=== PATIENT | female | born 1995 | race Caucasian/White ===

== ENCOUNTER 2017-12-01 13:16 | Emergency (ER) | payer OTHER ==
--- NOTE | 2017-12-01 14:50 | PD ---
HPI Chief Complaint cramping pain and decreased movement Date Seen: Dec 01, 2017 Time Seen: 14:30 Travel History International Travel<30 Days: No Contact w/Intl Traveler<30Days: No Known Affected Area: No History of Present Illness HPI Ms Kuo is a 22YO at 29/0 weeks seen at [facility] with PMHx PCOS who p/w decreased movement and cramping pain since last night. Pt also reports some mucousy vaginal discharge over the last 24 hours. Cramping is below umbilicus and pt indicates pain sometimes radiates around to her back bilaterally. States she felt no movement from 10PM last night until early this afternoon. After eating today around 1PM has felt the fetus moving although not back at baseline yet. Pt also endorses intractable heartburn each time she eats which is worse than other pregnancies. Reports occasional HAs and lightheadedness when standing too quickly; however, denies N/V/D, constipation. Pt had induced vaginal delivery in first , C/S in second for macrosomia , and spontaneous miscarriage in third . Pt denies PIH or GDM in this or other pregnancies, but states someone had told her possibly she had high blood glucose with her last . Pt has gotten her labs but is not sure of the results. Weeks Gestation: 29 Para: 2 : 4 Miscarriage: 1 : 0 History Past Medical History Narrative Medical PCOS x7-8 years Obstetric History Obstetric History 1x induced vaginal delivery at 39 weeks 1x C/S at 37 weeks 1x spontaneous miscarriage at 6-7 weeks Past Surgical History Narrative Surgical C/S Family History Narrative Family History Mother - cholecystectomy Social History Alcohol Use: No Tobacco Use: No (former smoker; quit in 2014 after 5 years of smoking 1ppd) Substance Abuse: No Allergies-Medications (Allergen,Severity, Reaction): Coded Allergies: No Known Allergies (Unverified , 09/16/17) Home Meds Active Scripts Vit W/ Fe Polysacch C (Vitafol Ultra 29-0.6-0.4-200 mg) 29 Mg Iron-1 Mg -200 Mg Cap Prov:Sharif Felipe MD 09/16/17 Review of Systems General / Constitutional: No: Fever, Chills Eyes: No: Visual changes HENT: Headaches (occasional), Lightheadedness Cardiovascular: No: Chest Pain or Discomfort, Palpitations Respiratory: Short of Breath (occasionally with exertion), No: Cough Gastrointestinal: Nausea, Diarrhea (occasional), Abdominal Pain, Indigestion, No: Vomiting, Constipation Genitourinary: Pelvic Pain (lower pelvic pain), Discharge (mucousy over last 24 hours), No: Dysuria, Vaginal Bleeding Musculoskeletal: Cramping Skin: No Rash Neurologic: No: Weakness, Dizziness Physical Exam T - 98.3 / HR 82 / BP 111/62 / RR16 Narrative GENERAL: Well-nourished, well-developed patient lying in bed in NAD. SKIN: Warm and dry. HEAD: Normocephalic and atraumatic. EYES: No scleral icterus. No injection or drainage. EOMI. ENT: No nasal drainage noted. Mucous membranes pink. Airway patent. NECK: Supple, trachea midline. No JVD. CARDIOVASCULAR: Regular rate and rhythm without murmurs, gallops, or rubs. RESPIRATORY: Breath sounds equal bilaterally. No accessory muscle use. ABDOMEN/GI: Abdomen soft, non-tender, bowel sounds present, no rebound, no guarding Gravid to 29 weeks size GENITOURINARY: External Genitalia: intact and normal in appearance Cervix: closed Dilatation: 0 Effacement: 0 Station: - Presentation: - Membranes: intact Uterine Contractions: absent FHT's: Category: 1 Baseline: 130 Reactive: y Variability: moderate Decels: absent EXTREMITIES: No cyanosis or edema. BACK: Nontender without obvious deformity. No CVA tenderness. NEUROLOGICAL: Awake and alert. Motor and sensory grossly within normal limits. Five out of 5 muscle strength in all muscle groups. Normal speech. Data Data Vital Signs Reviewed: Yes Orders Orders Urinalysis - C+S If Indicated (12/01/17 14:46) MDM Medical Record Reviewed: Yes Narrative Course / MDM 22YO at 29/0 weeks followed by [facility] p/w decreased movement of about 12 hours and lower abdominal cramping pain. Cervix is closed, thick and long. FHT are reassuring with BL 130, reactive, moderate and absent decels 1. IUP -Monitor and toco 2. Decreased movement -Reassuring FHTs on monitor with BL 130, reactive, moderate, no decels -Pt notes good movement since eating at 1PM 3. UTI -UA positive leuko esterase -Macrobid 100mg PO BID x5 days; script transmitted to pt preferred pharmacy -F/u with OB doctor in 1 week 4. Abdominal pain -Pt encouraged to hydrate copiously -Pt advised to take Tylenol PRN for round ligament pain -Pt educated on three top causes of abdominal pain in 3rd trimester -Pt discharged home Pt seen and dw Chana Daugherty and Ernestina Aldana Diagnosis Diagnosis: Primary Impression: Abdominal pain affecting Additional Impressions: Decreased movement affecting management of mother, antepartum UTI (urinary tract infection) during Disposition: 01 DISCHARGE HOME Condition: Stable Scripts Nitrofurantoin Monohydrate Macrocrystals (Macrobid) 100 Mg Capsule 100 MG PO BID for Infection for 5 Days, #10 CAP 0 Refills Prov: Octavio Garcia MD R1 12/01/17 Patient Instructions: Abdominal Pain in (ED), General Instructions Octavio Garcia MD R1 Dec 01, 2017 14:50
[2017-12-01 16:03] LABS: AMORPHOUS SEDIMENT, URINE RARE; BACTERIA, URINE MOD /hpf; BILIRUBIN, URINE NEG (NEG); BLOOD, URINE NEG (NEG); GLUCOSE,URINE NEG (NEG); KETONE, URINE NEG (NEG); MUCUS URINE FEW /lpf (OCC); NITRITE,URINE NEG (NEG); PH, URINE 6.5 (5.0-8.5); SQUAMOUS EPITHELIAL CELL URINE 5 /hpf (0-5); URINE COLOR YELLOW (YELLW/STRAW); URINE LEUKOCYTE ESTERASE LARGE (NEG)
[2017-12-01] MEDS ORDERED: MACR100C2 PO (16:14)
== END 2017-12-01 15:51 | disposition home or self-care (01) ==
LOC: HOBED 13:16
DX: O23.43 Unspecified infection of urinary tract in pregnancy, third trimester (principal); O36.8130 Decreased fetal movements, third trimester, not applicable or unspecified; Z3A.29 29 weeks gestation of pregnancy
CPT/HCPCS: 81001; 87086; 99283

== ENCOUNTER 2018-01-27 02:33 | Emergency (ER) | payer OTHER ==
[~2018-01-27 02:33] MED LIST: MACR100C2 PO
[2018-01-27 02:38] VITALS: BP 114/63; PULSE 85; RESP 18; TEMP 97.8; O2SAT 99
[2018-01-27 06:20] LABS: BACTERIA, URINE MANY /hpf; BILIRUBIN, URINE NEG (NEG); BLOOD, URINE NEG (NEG); GLUCOSE,URINE NEG (NEG); KETONE, URINE TRACE mg/dL (NEG); MUCUS URINE MANY /lpf (OCC); NITRITE,URINE NEG (NEG); PH, URINE 6.5 (5.0-8.5); RENAL EPITHELIAL CELLS 3 /hpf; SQUAMOUS EPITHELIAL CELL URINE 8 /hpf (0-5); URINE COLOR YELLOW (YELLW/STRAW); URINE LEUKOCYTE ESTERASE LARGE (NEG)
--- NOTE | 2018-01-27 06:27 | PD ---
HPI Chief Complaint: Skin Problem Time Seen by Provider: 04:07 Travel History International Travel<30 days: No Contact w/Intl Traveler<30days: No Traveled to known affect area: No History of Present Illness HPI The patient is a 22 year old female who presents to the [facility] emergency department with a history of anemia, recently placed on iron supplementation by chart picker, Dr. Navarro 3 weeks ago. She reports that over the last week she has had a recurrence of hemorrhoids. She reports that she started taking stool softeners and using preparation H, however over the last 3 days his symptoms have worsened. She reports having pain with sitting. She reports that she is 37 weeks . Her last menstrual cycle was May 09, 2017. Her due date is February 16. She reports that she has been feeling the baby move well. She denies having any abdominal pain or cramping. She denies having any nausea, vomiting, or diarrhea. The patient denies having any blood in her stool or black or tarry stools. She reports that she has been taking Tylenol for the pain. She reports that she has noticed that her urine has been darker than usual in spite of drinking at least 12 glasses of water daily. She denies having any dysuria, urinary frequency, or urinary urgency. She denies having any vaginal discharge or vaginal bleeding. On review of systems otherwise, she denies having any known recent fevers, cough, congestion , neck pain, chest pain, shortness of breath, or neurologic symptoms. [facility] Past Medical History Narrative Medical The patient's past medical history is significant for hemorrhoids. The patient' s OB history is significant for being a with 1 miscarriage previously. She reports that she has had one vaginal delivery and 1 . Medical History: Denies Significant Hx ?: LMP: 05/09/17 : 4 Para: 2 Miscarriage: 1 Past Surgical History Narrative Surgical The patient's past surgical history is significant for a . Section: Yes Social History Alcohol Use: No Tobacco Use: No (former smoker; quit in 2014 after 5 years of smoking 1ppd) Substance Use: No Allergies-Medications (Allergen,Severity, Reaction): Coded Allergies: No Known Allergies (Unverified , 01/27/18) Reported Meds & Prescriptions Reported Meds & Active Scripts Active Macrobid (Nitrofurantoin Monohydrate Macrocrystals) 100 Mg Capsule 100 Mg PO BID 5 Days Vitafol Ultra 29-0.6-0.4-200 mg ( Vit W/ Fe Polysacch C) 29 Mg Iron-1 Mg -200 Mg Cap Review of Systems Except as stated in HPI: all other systems reviewed are Neg General / Constitutional: No: Fever Eyes: No: Visual changes HENT: No: Headaches Cardiovascular: No: Chest Pain or Discomfort Respiratory: No: Shortness of Breath Gastrointestinal: No: Abdominal Pain Genitourinary: Positive: Other (The patient reports having rectal pain.), No: Urgency, Frequency, Dysuria Musculoskeletal: No: Pain Skin: No Rash Neurologic: No: Weakness Psychiatric: No: Depression Endocrine: No: Polydipsia Hematologic/Lymphatic: No: Easy Bruising Physical Exam Narrative General: The patient is a well-developed well-nourished female in no acute distress. Head and Neck exam: Head is normocephalic atraumatic. Eyes: EOMI, pupils are equal round and reactive to light. Nose: Midline septum with pink mucous membranes Mouth: Dentition unremarkable. Moist mucus membranes. Posterior oropharynx is not erythematous. No tonsillar hypertrophy. Uvula midline. Airway patent. Neck: No palpable lymphadenopathy. No nuchal rigidity. No thyromegaly. Cardiovascular: Regular rate and rhythm without murmurs, gallops, or rubs. No pulse deficit to the extremities on simultaneous auscultation and palpation of her radial artery. Lungs: Clear to auscultation bilaterally. No wheezes, rhonchi, or rales. Abdomen: Soft, distended related to , fundus well above the umbilicus, no palpable contractions, no tenderness on palpation of all quadrants of the abdomen, head is down into the pelvis on palpation.. No guarding, rebound , or rigidity. Normal bowel sounds are audible. Extremities: No clubbing, cyanosis, or edema. 2+ pulses in all 4 extremities. No calf tenderness on palpation. Back: No costovertebral angle tenderness to palpation. Neurologic Exam: Grossly nonfocal. Skin Exam: No rash noted. Intact skin that is warm and dry. RECTAL EXAM: The patient on examination is noted to have 4 inflamed hemorrhoids that are tender to palpation. No abscess formation. No surrounding erythema or perineal tenderness. Data Data Last Documented VS Vital Signs Date Time Temp Pulse Resp B/P (MAP) Pulse Ox O2 Delivery O2 Flow Rate FiO2 01/27/18 02:38 97.8 85 18 114/63 (80) 99 Orders Orders Urinalysis - C+S If Indicated (01/27/18 05:28) Oral Rehydration (01/27/18 05:53) Urine Culture (01/27/18 05:55) Labs Laboratory Tests Test 01/27/18 05:55 Urine Color YELLOW Urine Turbidity HAZY Urine pH 6.5 Urine Specific [place] 1.041 Urine Protein 30 mg/dL Urine Glucose (UA) NEG mg/dL Urine Ketones TRACE mg/dL Urine Occult Blood NEG Urine Nitrite NEG Urine Bilirubin NEG Urine Urobilinogen 2.0 MG/DL Urine Leukocyte Esterase LARGE Urine RBC 7 /hpf Urine WBC 11 /hpf Urine Squamous Epithelial Cells 8 /hpf Urine Renal Epithelial Cells 3 /hpf Urine Bacteria MANY /hpf Urine Mucus MANY /lpf Microscopic Urinalysis Comment CULTURE INDICATED MDM Medical Decision Making Medical Screen Exam Complete: Yes Emergency Medical Condition: Yes Medical Record Reviewed: Yes Differential Diagnosis Hemorrhoid, versus perianal abscess, versus fistula Narrative Course During the course of the patient's emergency department visit, the patient's history, examination, and differential diagnosis were reviewed with the patient. The patient had a urine sent for analysis. The patient on examination is noted to have thrombosed hemorrhoids that are tender to palpation. No signs of infection. The patient's laboratory studies were reviewed and remarkable for a urinalysis that shows concentrated urine 30 protein trace ketones large leukocyte esterase , 7 RBCs, 11 WBCs, many bacteria, culture indicated. The patient will be discharged home to continue on stool softeners. The patient was given a prescription for Anusol HC. The patient was given a prescription for Macrobid for urinary tract infection. She was encouraged to follow-up with her chart picker as previously scheduled on for reexamination. The patient is resting comfortably and feels better, is alert and in no distress. The patient's results and examination findings were discussed with the patient. The repeat examination is unremarkable and benign. The history, exam, diagnostic testing, and current condition do not suggest any significant pathology to warrant further testing, continued ED treatment, admission, or surgical evaluation at this point. The vital signs have been stable. The patient does not have uncontrollable pain, intractable vomiting, or other significant symptoms. The patient's condition is stable and appropriate for discharge. The patient will pursue further outpatient evaluation with a primary care physician or other designated or consulting physician as indicated in the discharge instructions. The patient is instructed to report back to the emergency department immediately for reexamination in the mean time if she develops any new or worsening signs or symptoms. The patient expressed understanding and was agreeable with this plan. Diagnosis Primary Impression: UTI (urinary tract infection) during Qualified Codes: O23.43 - Unspecified infection of urinary tract in , third trimester Additional Impressions: Hemorrhoids Qualified Codes: K64.9 - Unspecified hemorrhoids Abdominal pain affecting Referrals: [facility] 2 days Patient Instructions: General Instructions, Hemorrhoids (ED), Urinary Tract Infection in (ED) Med/Other Pt SpecificInfo: Prescription(s) given Scripts Hydrocortisone Rectal (Anusol-Hc Rectal) 2.5% Cream 1 APPLIC RECTAL QID for Hemorrhoids, #30 GM 0 Refills Prov: Estephania Tilley MD 01/27/18 Nitrofurantoin Monohydrate Macrocrystals (Macrobid) 100 Mg Cap 100 MG PO BID for Infection, #19 CAP 0 Refills Prov: Estephania Tilley MD 01/27/18 Disposition: 01 DISCHARGE HOME Condition: Stable Estephania Tilley MD Jan 27, 2018 06:27
[2018-01-27] MEDS ORDERED: HYDR2.5%T RECTAL (06:36)
[2018-01-27] MEDS ORDERED: MACR100C2 PO (06:36)
[2018-01-27] MEDS ORDERED: NITROFURANTOIN MONOHYD MACROCR 100 MG CAP PO ONE (06:45)
== END 2018-01-27 06:42 | disposition home or self-care (01) ==
LOC: NEPC 02:33
DX: O23.43 Unspecified infection of urinary tract in pregnancy, third trimester (principal); O99.013 Anemia complicating pregnancy, third trimester; O22.43 Hemorrhoids in pregnancy, third trimester; Z87.891 Personal history of nicotine dependence; Z3A.37 37 weeks gestation of pregnancy
CPT/HCPCS: 81001; 87086; 99283

== ENCOUNTER 2018-02-10 19:50 | Inpatient (IN) | payer OTHER ==
[~2018-02-10] VITALS: Ht 170.2 cm; Wt 94.3 kg
[~2018-02-10 19:50] MED LIST changes: +HYDR2.5%T RECTAL
[2018-02-10] MEDS ORDERED: LACTATED RINGER'S 1000 ML INJ 1,000 ML IV ONE (20:35)
--- NOTE | 2018-02-10 20:35 | HHI.HP ---
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) Patient Name: Sanaz Kuo Unit Number: [id number] Date of : 1995 Patient Status: Registered Clinic Attending Doctor: HPI HPI Chief Complaint Delivery consult Travel History International Travel<30 Days: No Contact w/Intl Traveler<30Days: No Known Affected Area: No History of Present Illness HPI 22-year-old , IUP at 39 wk c/o CTXs q 3-4 min painful , also LOF but Amnisure is neg Patient's care has been complicated by history of a previous delivery, anxiety, anemia, history of LGA , desire for permanent surgical sterilization, recent diagnosis of urinary tract infection She had a vaginal delivery of a 6 lbs. 11 oz. followed by delivery for a 10 lbs. 3 oz. . She has an ultrasound scheduled for tomorrow and would like a trial of labor unless this appears to be large as well. Patient reports good movement. She denies any leaking of fluid or vaginal bleeding. She denies any painful contractions at this time. Weeks Gestation: 3 9 Para: 1 : 2 History (Limited) History Past Medical History Narrative Medical Anxiety, anemia Obstetric History Obstetric History 002 1 delivery 1 Menarche at age 13 with menses occurring every month and lasting approximately 10 days. She denies any history of abnormal Pap smears or STDs. Past Surgical History Narrative Surgical delivery 1 Family History Family History: Negative Social History Alcohol Use: No Tobacco Use: No Substance Abuse: No Allergies-Medications Allergies-Medications (Allergen,Severity, Reaction): Coded Allergies: No Known Allergies (Unverified , 01/27/18) Home Meds Active Scripts Hydrocortisone Rectal (Anusol-Hc Rectal) 2.5% Cream, 1 APPLIC RECTAL QID for Hemorrhoids, #30 GM 0 Refills Prov:Estephania Tilley MD 01/27/18 Nitrofurantoin Monohydrate Macrocrystals (Macrobid) 100 Mg Cap, 100 MG PO BID for Infection, #19 CAP 0 Refills Prov:Estephania Tilley MD 01/27/18 Vit W/ Fe Polysacch C (Vitafol Ultra 29-0.6-0.4-200 mg) 29 Mg Iron-1 Mg -200 Mg Cap Prov:Sharif Felipe MD 09/16/17 Discontinued Scripts Nitrofurantoin Monohydrate Macrocrystals (Macrobid) 100 Mg Capsule, 100 MG PO BID for Infection for 5 Days, #10 CAP 0 Refills Prov:Octavio Garcia MD R1 12/01/17 ROS Review of Systems Except as stated in HPI: all other systems reviewed are Neg Physical Exam Physical Exam Narrative GENERAL: Well-nourished, well-developed patient. SKIN: Warm and dry. HEAD: Normocephalic and atraumatic. EYES: No scleral icterus. No injection or drainage. ENT: No nasal drainage noted. Mucous membranes pink. Airway patent. NECK: Supple, trachea midline. No JVD. CARDIOVASCULAR: Regular rate and rhythm without murmurs, gallops, or rubs. RESPIRATORY: Breath sounds equal bilaterally. No accessory muscle use. BREASTS: Deferred ABDOMEN/GI: Abdomen soft, non-tender, bowel sounds present, no rebound, no guarding Gravid GENITOURINARY: Deferred FHT's: Deferred EXTREMITIES: No cyanosis or edema. BACK: Nontender without obvious deformity. NEUROLOGICAL: Psychiatric: Awake and alert. Motor and sensory grossly within normal limits. Grossly normal muscle strength in all muscle groups. Normal speech. Grossly normal memory and affect. Grossly normal range of motion and gait. Data Data [facility] Plan Assessment/plan: 1. IUP at 39 wksPCS in early labor scheduled for RCS BTL in 2 d , will proceed with this procedure because she has gone into labor 2. History of previous delivery following : We discussed at length the risks, benefits, and alternatives to a trial of labor after including but not limited to, the risk of uterine rupture approximately 1-2%. We discussed that uterine rupture could carry with it catastrophic effects including brain damage or to her and or the . We discussed the indications of delivery during a including nonreassuring heart tracing. We discussed other risks of including but not limited to pain, need for delivery, need for hysterectomy, need for blood transfusion, and other risks. We discussed the risks associated with delivery including but not limited to pain, infection, bleeding, injury to other organs like the bladder/bowel/nerves/vessels, injury to the baby, need for repeat operation, need for hysterectomy, need for blood transfusion, wound infection and breakdown, and other possible complications. all the patient's questions were answered. The patient's operative report is not included in her chart so this was requested again from labor and delivery. 3. History of anemia: Most recent hemoglobin 8.4 as per patient report, discussed that she has a higher likelihood of requiring a blood transfusion with her anemia. We discussed po iron and IV iron and the risks versus benefits of each and brief. Will discuss further with Dr. Felipe and deferred to his management. 4. Desire for permanent surgical sterilization: The patient reports that she signed her tubal papers on Jan 21 2018. Her papers will not be mature until February 20, 2018. She is aware this is a permanent and irreversible procedure and is content with her family size. She is aware there are alternatives but desires a tubal ligation if she undergoes a delivery. She is aware that should she deliver before this date given by she is likely not going to receive her tubal ligation. She is aware that she may obtain this on an outpatient basis with Dr. Felipe. 5. Anxiety: Patient on Zoloft for history of anxiety. Shay Daugherty II, MD Feb 10, 2018 20:35
[2018-02-10] MEDS ORDERED: FERR325T18 PO (20:38)
[2018-02-10] MEDS ORDERED: ZOLO50TA PO (20:38)
[2018-02-10] MEDS ORDERED: AMOX500C PO (20:38)
[2018-02-10] MEDS ORDERED: ACETAMINOPHEN 1000 MG/100 ML 100 ML IV ONE (20:52)
[2018-02-10] MEDS ORDERED: MORPHINE SULFATE PF 5 MG/10 ML VIAL ONE (20:52)
[2018-02-10] MEDS ORDERED: LACTATED RINGER'S 1000 ML INJ 1,000 ML IV SCH (21:05)
[2018-02-10 21:09] LABS: AUTOMATED NEUTROPHIL # 5.1 TH/MM3 (1.8-7.7); BASOPHIL % 0.5 % (0.0-2.0); EOSINOPHIL # 0.1 TH/MM3 (0-0.4); HEMATOCRIT 31.5 % (35.0-46.0); LYMPH % 24.1 % (9.0-44.0); LYMPHOCYTE # 1.8 TH/MM3 (1.0-4.8); MEAN CELL VOLUME 76.3 FL (80.0-100.0); MEAN CORPUSCULAR HEMOGLOBIN 24.3 PG (27.0-34.0); MEAN CORPUSCULAR HGB CONC 31.9 % (32.0-36.0); MEAN PLATELET VOLUME 8.3 FL (7.0-11.0); MONO % 6.5 % (0.0-8.0); MONOCYTE # 0.5 TH/MM3 (0-0.9); NEUT % 67.9 % (16.0-70.0); PLATELET COUNT 176 TH/MM3 (150-450); RED BLOOD COUNT 4.13 MIL/MM3 (4.00-5.30); RED CELL DISTRIBUTION WIDTH 21.7 % (11.6-17.2); WHITE BLOOD COUNT 7.6 TH/MM3 (4.0-11.0)
[2018-02-10 21:18] LABS: BACTERIA, URINE MOD /hpf; BILIRUBIN, URINE NEG (NEG); BLOOD, URINE NEG (NEG); GLUCOSE,URINE NEG (NEG); KETONE, URINE NEG (NEG); MUCUS URINE FEW /lpf (OCC); NITRITE,URINE NEG (NEG); SQUAMOUS EPITHELIAL CELL URINE 38 /hpf (0-5); URINE COLOR YELLOW (YELLW/STRAW); URINE LEUKOCYTE ESTERASE MOD (NEG)
[2018-02-10] MEDS ORDERED: ceFAZolin 2 GM PREMIX 50 ML IV SCH (21:45)
[2018-02-10] MEDS ORDERED: CITRIC ACID-SODIUM CITRATE LIQ 30 ML UDC PO SCH (22:15)
[2018-02-10] MEDS ORDERED: OXYTOCIN 30 UNITS-500ML PREMIX 500 ML IV ONE (22:30)
[2018-02-10] MEDS ORDERED: ZOLPIDEM TARTRATE 5 MG TAB PO PRN (22:30)
[2018-02-10] MEDS ORDERED: ACETAMINOPHEN 325 MG TAB PO PRN (22:30)
[2018-02-10] MEDS ORDERED: SIMETHICONE 80 MG CHEWABLE TAB PO PRN (22:30)
[2018-02-10] MEDS ORDERED: KETOROLAC TROMETHAMINE 60 MG/2 ML (IM) VIAL IM PRN (22:30)
[2018-02-10] MEDS ORDERED: oxyCODONE/ACETAMINOPHEN 5 MG/325 MG TAB PO PRN (22:30)
[2018-02-10] MEDS ORDERED: SODIUM CHLORIDE 0.9% FLUSH 10 ML FLUSH IV FLUSH PRN (22:30)
[2018-02-10] MEDS ORDERED: CEFAZOLIN INJ 2,000 MG in SODIUM CHLORIDE 0.9% INJ 100 ML IV SCH (22:30)
[2018-02-10 22:33] VITALS: TEMP 97.6
[2018-02-10 22:35] VITALS: BP 99/59; PULSE 57; RESP 18; O2SAT 100
[2018-02-10] MEDS ORDERED: ONDANSETRON ODT 4 MG TAB PO PRN (22:45)
--- NOTE | 2018-02-10 22:51 | MP ---
cc: Shay Daugherty MD, Bill L MD DATE OF OPERATION: 02/10/2018 PREOPERATIVE DIAGNOSES: 1. Previous section at term, in early labor. 2. Desires sterilization POSTOPERATIVE DIAGNOSES: 1. Previous section at term, in early labor. 2. Desires sterilization. PROCEDURES PERFORMED: Repeat low transverse section, tubal ligation, bilateral. SURGEON: Shay Daugherty MD ANESTHESIA: Spinal. PREOPERATIVE NOTE: The patient is a 23-year-old white female, G4, P2 with previous of last baby now for a repeat at term. She was scheduled for surgery in 2 days; however, she has gone in early labor with regular painful contractions. She has tubal papers signed and does desire tubal ligation. We will plan to proceed with a repeat section and tubal. PROCEDURE IN DETAIL: The patient was taken to the operating room and placed in supine position on the operating table. After adequate anesthesia was administered, she was prepped and draped for abdominal surgery. Previous Pfannenstiel incision was excised out and the incision carried to the fascia sharply. The fascia was incised laterally and reflected off of the rectus muscle. The peritoneal cavity entered sharply in the midline, the incision extended superior and inferiorly. Bladder blade placed in lower uterine incision. The visceral peritoneum reflected off the lower uterine segment and placed behind the bladder blade. Transverse hysterotomy was made, extended bluntly bilaterally and a male was delivered from vertex presentation at 9:36 p.m. Weight 3860 grams, Apgars 9 and 9. There were no complications. Delayed cord clamping done. Cord blood obtained. Placenta manually extracted. The uterus exteriorized. The hysterotomy closed in running layer 0 chromic, followed by imbricating suture of same. Hemostasis was achieved. The blood was suctioned from cul-de-sac and gutters. The uterus was elevated. The tubal was then done. The left tube was grasped with a Walden clamp, placed on traction. Avascular portion of the mesosalpinx identified and a hemostat passed through that window and two sutures brought through that defect in the mesosalpinx and the tube was tied fore and aft and the intervening segment removed and sent to pathology. Same was done on the opposite side without difficulty. Ovaries and tubes otherwise within normal limits. The uterus replaced in peritoneal cavity. The parietal peritoneum closed in running layer of 2-0 Vicryl. Muscle reapproximated with stick ties of Chromic and Vicryl. The fascia closed in running layer of 0 Vicryl. Subcutaneous tissues closed with a running 2-0 plain catgut suture. The skin closed with 3-0 Monocryl subcuticular stitch and Steri-Strips and a pressure dressing applied. The estimated blood loss was 500 mL. There were no complications. Sponge and needle counts correct x2 and the patient to recovery in stable condition. MD MAXIM Mayer/ , 10:30 PM , 10:49 PM
[2018-02-10 22:53] VITALS: BP 98/52; PULSE 71; RESP 20; O2SAT 97
[2018-02-10 23:01] VITALS: BP 100/51; PULSE 72; RESP 18; O2SAT 98
[2018-02-10 23:15] VITALS: BP 100/49; PULSE 68; RESP 18; O2SAT 98
[2018-02-10 23:36] VITALS: BP 102/56; PULSE 74; RESP 18; O2SAT 99
[2018-02-11] MEDS ORDERED: EPIDURAL-DO NOT ADMINISTER ANTICOAGULANTS PRN (00:30)
[2018-02-11] MEDS ORDERED: EPIDURAL-NALOXONE HCL 0.4 MG/ML AMP IV PUSH PRN (00:30)
[2018-02-11] MEDS ORDERED: EPIDURAL-DIPHENHYDRAMINE HCL 50 MG CAP PO PRN (00:30)
[2018-02-11] MEDS ORDERED: EPIDURAL-DIPHENHYDRAMINE HCL 50 MG/ML VIAL IV PUSH PRN (00:30)
[2018-02-11] MEDS ORDERED: EPIDURAL-NO SYSTEMIC NARCOTICS PRN (00:30)
[2018-02-11] MEDS: ceFAZolin 2 GM/DEX PREMIX 50 ML IV SCH ×2 (00:54→07:26)
[2018-02-11] MEDS ORDERED: OXYTOCIN 30 UNITS-500ML PREMIX 500 ML IV PRN (03:30)
[2018-02-11 03:44] VITALS: BP 98/49; PULSE 78; RESP 17; TEMP 98.2
[2018-02-11] MEDS: LACTATED RINGER'S 1000 ML INJ 1,000 ML IV SCH ×2 (04:27→13:23)
[2018-02-11] MEDS: ACETAMINOPHEN 1000 MG/100 ML 100 ML IV SCH ×2 (04:27→12:56)
[2018-02-11 05:53] LABS: AUTOMATED NEUTROPHIL # 13.5 TH/MM3 (1.8-7.7); HEMATOCRIT 28.2 % (35.0-46.0); LYMPH % 7.4 % (9.0-44.0); LYMPHOCYTE # 1.1 TH/MM3 (1.0-4.8); MEAN CELL VOLUME 76.6 FL (80.0-100.0); MEAN CORPUSCULAR HEMOGLOBIN 24.4 PG (27.0-34.0); MEAN CORPUSCULAR HGB CONC 31.9 % (32.0-36.0); MEAN PLATELET VOLUME 8.5 FL (7.0-11.0); MONO % 2.8 % (0.0-8.0); MONOCYTE # 0.4 TH/MM3 (0-0.9); NEUT % 89.8 % (16.0-70.0); PLATELET COUNT 165 TH/MM3 (150-450); RED BLOOD COUNT 3.68 MIL/MM3 (4.00-5.30); RED CELL DISTRIBUTION WIDTH 21.3 % (11.6-17.2)
--- NOTE | 2018-02-11 06:10 | HHI.OB ---
Objective Vitals/I&O Vital Signs Date Time Temp Pulse Resp B/P (MAP) Pulse Ox O2 Delivery O2 Flow Rate FiO2 02/11/18 03:44 98.2 78 17 98/49 (65) 02/10/18 23:36 99 02/10/18 23:36 74 18 102/56 (71) 02/10/18 23:15 18 98 02/10/18 23:15 68 100/49 (66) 02/10/18 23:01 98 02/10/18 23:01 72 18 100/51 (67) 02/10/18 22:53 71 20 98/52 (67) 97 02/10/18 22:35 57 18 99/59 (72) 02/10/18 22:35 100 02/10/18 22:33 97.6 Result Diagram: 02/11/18 0526 Objective Remarks GENERAL: Well-nourished, well-developed patient. CARDIOVASCULAR: Regular rate and rhythm without murmurs, gallops, or rubs. RESPIRATORY: Breath sounds equal bilaterally. No accessory muscle use. ABDOMEN/GI: Abdomen soft, non-tender, bowel sounds present. Incision: Clean, dry and intact. Fundus: Firm, non-tender at umbilicus. GENITOURINARY: Light to moderate bleeding. EXTREMITIES: No cyanosis or edema, non-tender, without signs of DVT. Medications and IVs Current Medications Medications (Trade) Dose Ordered Sig/Ata Route Start Time Stop Time Status Last Admin Lactated Ringer's 1,000 ml @ 150 mls/hr Q6H40M IV 02/10/18 21:05 Cefazolin Sodium/ Dextrose 50 ml @ 100 mls/hr ARCHEOLOGY PROFESSOR IV 02/10/18 21:45 02/14/18 21:44 (Bicitra Liq) 30 ml ARCHEOLOGY PROFESSOR PO 02/10/18 22:15 02/14/18 22:14 Lactated Ringer's 1,000 ml @ 100 mls/hr Q10H IV 02/11/18 03:23 02/11/18 23:22 02/11/18 04:27 Oxytocin 500 ml @ 100 mls/hr UNSCH X1 PRN IV 02/11/18 03:30 02/12/18 03:29 (NS Flush) 2 ml BID IV FLUSH 02/11/18 09:00 (NS Flush) 2 ml UNSCH PRN IV FLUSH 02/10/18 22:30 (Mylicon Chew) 80 mg QID PRN PO 02/10/18 22:30 (Tylenol) 650 mg Q6H PRN PO 02/10/18 22:30 (Motrin) 600 mg Q6H PRN PO 02/10/18 22:30 (Toradol Inj) 60 mg UNSCH X1 PRN IM 02/10/18 22:30 02/11/18 22:29 (Percocet 5-325 Mg) 1 tab Q4H PRN PO 02/10/18 22:30 (Percocet 5-325 Mg) 2 tab Q4H PRN PO 02/10/18 22:30 (Amberly-Colace) 2 tab Q12H PRN PO 02/10/18 22:30 (Ambien) 5 mg HS PRN PO 02/10/18 22:30 (M-M-R Ii Inj) 0.5 ml ONCE ONCE SQ 02/11/18 16:00 02/11/18 16:01 (Boostrix Inj) 0.5 ml ONCE ONCE IM 02/11/18 16:00 02/11/18 16:01 (Zofran Odt) 4 mg Q6H PRN PO 02/10/18 22:45 Cefazolin Sodium/ Dextrose 50 ml @ 100 mls/hr Q8H IV 02/10/18 23:00 02/11/18 07:29 02/11/18 00:54 ([facility] Nursing Information) NO SYSTEMIC NARCOTICS TO BE GIVEN FO... UNSCH PRN .XX 02/11/18 00:30 02/12/18 00:29 (Narcan Inj) 0.4 mg UNSCH PRN IV PUSH 02/11/18 00:30 02/12/18 00:29 (Benadryl Inj) 25 mg Q6H PRN IV PUSH 02/11/18 00:30 02/12/18 00:29 (Benadryl) 50 mg Q6H PRN PO 02/11/18 00:30 02/12/18 00:29 ([facility] Nursing Information) ALL NURSING DEPARTMENTS UNSCH PRN .XX 02/11/18 00:30 02/12/18 00:29 Acetaminophen 100 ml @ 400 mls/hr Q8H IV 02/11/18 05:00 02/11/18 13:14 02/11/18 04:27 Natasha Kimble MD R2 Feb 11, 2018 06:10
--- NOTE | 2018-02-11 06:49 | HHI.OB ---
Subjective Post Operative Day: 1 Remarks Postop day 1 AFVSS Patient doing well, complaints of soreness, normal lochia, baby doing well, Ye still indwelling Objective Vitals/I&O Vital Signs Date Time Temp Pulse Resp B/P (MAP) Pulse Ox O2 Delivery O2 Flow Rate FiO2 02/11/18 03:44 98.2 78 17 98/49 (65) 02/10/18 23:36 99 02/10/18 23:36 74 18 102/56 (71) 02/10/18 23:15 18 98 02/10/18 23:15 68 100/49 (66) 02/10/18 23:01 98 02/10/18 23:01 72 18 100/51 (67) 02/10/18 22:53 71 20 98/52 (67) 97 02/10/18 22:35 57 18 99/59 (72) 02/10/18 22:35 100 02/10/18 22:33 97.6 Result Diagram: 02/11/18 0526 Objective Remarks GENERAL: Well-nourished, well-developed patient. CARDIOVASCULAR: Regular rate and rhythm without murmurs, gallops, or rubs. RESPIRATORY: Breath sounds equal bilaterally. No accessory muscle use. ABDOMEN/GI: Abdomen soft, non-tender, bowel sounds present. Incision: Clean, dry and intact. Bandage dry Fundus: Firm, non-tender at umbilicus. GENITOURINARY: Light to moderate bleeding. EXTREMITIES: No cyanosis or edema, non-tender, without signs of DVT. Medications and IVs Current Medications Medications (Trade) Dose Ordered Sig/Ata Route Start Time Stop Time Status Last Admin Lactated Ringer's 1,000 ml @ 150 mls/hr Q6H40M IV 02/10/18 21:05 Cefazolin Sodium/ Dextrose 50 ml @ 100 mls/hr EYEGLASS LENS GRINDER IV 02/10/18 21:45 02/14/18 21:44 (Bicitra Liq) 30 ml EYEGLASS LENS GRINDER PO 02/10/18 22:15 02/14/18 22:14 Lactated Ringer's 1,000 ml @ 100 mls/hr Q10H IV 02/11/18 03:23 02/11/18 23:22 02/11/18 04:27 Oxytocin 500 ml @ 100 mls/hr UNSCH X1 PRN IV 02/11/18 03:30 02/12/18 03:29 (NS Flush) 2 ml BID IV FLUSH 02/11/18 09:00 (NS Flush) 2 ml UNSCH PRN IV FLUSH 02/10/18 22:30 (Mylicon Chew) 80 mg QID PRN PO 02/10/18 22:30 (Tylenol) 650 mg Q6H PRN PO 02/10/18 22:30 (Motrin) 600 mg Q6H PRN PO 02/10/18 22:30 (Toradol Inj) 60 mg UNSCH X1 PRN IM 02/10/18 22:30 02/11/18 22:29 (Percocet 5-325 Mg) 1 tab Q4H PRN PO 02/10/18 22:30 (Percocet 5-325 Mg) 2 tab Q4H PRN PO 02/10/18 22:30 (Amberly-Colace) 2 tab Q12H PRN PO 02/10/18 22:30 (Ambien) 5 mg HS PRN PO 02/10/18 22:30 (M-M-R Ii Inj) 0.5 ml ONCE ONCE SQ 02/11/18 16:00 02/11/18 16:01 (Boostrix Inj) 0.5 ml ONCE ONCE IM 02/11/18 16:00 02/11/18 16:01 (Zofran Odt) 4 mg Q6H PRN PO 02/10/18 22:45 Cefazolin Sodium/ Dextrose 50 ml @ 100 mls/hr Q8H IV 02/10/18 23:00 02/11/18 07:29 02/11/18 00:54 ([facility] Nursing Information) NO SYSTEMIC NARCOTICS TO BE GIVEN FO... UNSCH PRN .XX 02/11/18 00:30 02/12/18 00:29 (Narcan Inj) 0.4 mg UNSCH PRN IV PUSH 02/11/18 00:30 02/12/18 00:29 (Benadryl Inj) 25 mg Q6H PRN IV PUSH 02/11/18 00:30 02/12/18 00:29 (Benadryl) 50 mg Q6H PRN PO 02/11/18 00:30 02/12/18 00:29 ([facility] Nursing Information) ALL NURSING DEPARTMENTS UNSCH PRN .XX 02/11/18 00:30 02/12/18 00:29 Acetaminophen 100 ml @ 400 mls/hr Q8H IV 02/11/18 05:00 02/11/18 13:14 02/11/18 04:27 Assessment/Plan Assessment and Plan Postop day 1 from repeat and bilateral tubal ligation Patient is afebrile vital signs are stable she is normal diet and ambulation so far is been minimal since she is only been postop 10--12 hrs. Plan-advance diet and ambulation, DC Ephraim, remove bandage on appropriate, continue progressive postop care Shay Daugherty II, MD Feb 11, 2018 06:49
[2018-02-11] MEDS ORDERED: SODIUM CHLORIDE 0.9% FLUSH 10 ML FLUSH IV FLUSH SCH (09:00)
[2018-02-11] MEDS: IBUPROFEN 600 MG TAB PO PRN ×2 (09:49→17:23)
[2018-02-11] MEDS ORDERED: DIPHTH/TETANUS/ACEL PERTUSSIS (BOOSTER) 0.5 ML VIAL/PFS IM ONE (16:00)
[2018-02-11] MEDS ORDERED: MEASLES, MUMPS, RUBELLA VACCINE 0.5 ML VIAL SQ ONE (16:00)
[2018-02-11] MEDS: DOCUSATE SODIUM 50 MG/SENNA 8.6 MG TAB PO PRN (17:22)
[2018-02-11 20:00] VITALS: BP 106/64; PULSE 76; RESP 18; TEMP 98
[2018-02-12] MEDS: oxyCODONE/ACETAMINOPHEN 5 MG/325 MG TAB PO PRN ×4 (00:32→13:39)
[2018-02-12] MEDS: IBUPROFEN 600 MG TAB PO PRN ×2 (00:32→09:00)
--- NOTE | 2018-02-12 07:51 | HHI.OB ---
Subjective Post Operative Day: 2 Remarks Postoperative day # 2. AFVSS overnight. Pain well-controlled on medication - she had increased pain around 3am this morning because she overstrained herself but is doing much better now. Incision clean, dry, and intact, not draining. Lochia less than a period. Denies dysuria. She is feeding the baby via bottle. Appetite good. No nausea or vomiting. Positive flatus.Negative bowel movement. Ambulating well. Denies fever, chills, cough, shortness of breath, chest pain, and calf pain. Otherwise, she is doing well this morning and has no other complaints. Objective Vitals/I&O Vital Signs Date Time Temp Pulse Resp B/P (MAP) Pulse Ox O2 Delivery O2 Flow Rate FiO2 02/11/18 20:00 98.0 76 18 106/64 (78) Result Diagram: 02/11/18 0526 Objective Remarks GENERAL: Well-nourished, well-developed patient. CARDIOVASCULAR: Regular rate and rhythm without murmurs, gallops, or rubs. RESPIRATORY: Breath sounds equal bilaterally. No accessory muscle use. ABDOMEN/GI: Abdomen soft, non-tender, bowel sounds present. Incision: Clean, dry and intact. Bandage dry Fundus: Firm, moderately tender at umbilicus. GENITOURINARY: Light to moderate bleeding. EXTREMITIES: No cyanosis or edema, non-tender, without signs of DVT. Medications and IVs Current Medications Medications (Trade) Dose Ordered Sig/Ata Route Start Time Stop Time Status Last Admin Lactated Ringer's 1,000 ml @ 150 mls/hr Q6H40M IV 02/10/18 21:05 Cefazolin Sodium/ Dextrose 50 ml @ 100 mls/hr ORDER ENTRY ADMINISTRATOR IV 02/10/18 21:45 02/14/18 21:44 (Bicitra Liq) 30 ml ORDER ENTRY ADMINISTRATOR PO 02/10/18 22:15 02/14/18 22:14 (NS Flush) 2 ml BID IV FLUSH 02/11/18 09:00 (NS Flush) 2 ml UNSCH PRN IV FLUSH 02/10/18 22:30 (Mylicon Chew) 80 mg QID PRN PO 02/10/18 22:30 (Tylenol) 650 mg Q6H PRN PO 02/10/18 22:30 (Motrin) 600 mg Q6H PRN PO 02/10/18 22:30 02/12/18 00:32 (Percocet 5-325 Mg) 1 tab Q4H PRN PO 02/10/18 22:30 02/11/18 17:23 (Percocet 5-325 Mg) 2 tab Q4H PRN PO 02/10/18 22:30 02/12/18 04:59 (Amberly-Colace) 2 tab Q12H PRN PO 02/10/18 22:30 02/11/18 17:22 (Ambien) 5 mg HS PRN PO 02/10/18 22:30 (Zofran Odt) 4 mg Q6H PRN PO 02/10/18 22:45 Assessment/Plan Assessment and Plan 23 y/o female who is POD# 1 s/p CS with bilateral tubal ligation -Continue routine care -Percocet and Motrin PRN pain -Pericolase PRN for constipation -Encouraged OOB. Advised pelvic rest for 6 wks -Will need a follow-up appointment within 1 week for incision check and in 6 weeks for visit -Re: ctrl - patient had bilateral tubal ligation Discussed with Dr. Matos Discharge Planning Discharge home in 1 day or today if patient decides Natasha Kimble MD R2 Feb 12, 2018 7:51 am
[2018-02-12 08:10] VITALS: BP 121/62; PULSE 76; RESP 7; TEMP 99
[2018-02-12 08:11] VITALS: RESP 20
[2018-02-12] MEDS: DOCUSATE SODIUM 50 MG/SENNA 8.6 MG TAB PO PRN (13:39)
[2018-02-12] MEDS ORDERED: IBUP-232 PO (15:44)
--- NOTE | 2018-02-12 15:44 | HHI.DCPOC ---
Discharge Care Plan Diagnosis: (1) delivery delivered Report Symptoms to Your Doctor -Temperature above 100.5 degrees -Redness, of incision or excessive or foul smelling drainage -Unusual pain or calf pain -Increased vaginal bleeding -Painful or difficulty urinating -Feelings of extreme sadness or anxiety after 2 weeks Goals to Promote Your Health * To prevent worsening of your condition and complications * To maintain your health at the optimal level Directions to Meet Your Goals Take your medications as prescribed Follow your dietary instruction Follow activity as directed Ensure plenty of rest for recovery Drink fluids for hydration Keep your appointments as scheduled Take your immunizations and boosters as scheduled If your symptoms worsen call your PCP, if no PCP go to Urgent Care Center or Emergency Room Smoking is Dangerous to Your Health. Avoid second hand smoke Call the 24-hour crisis hotline for domestic abuse at Alejo Abdi MD R1 Feb 12, 2018 15:44
[2018-02-12] MEDS ORDERED: OXYC1TAB63 PO (15:48)
== END 2018-02-12 17:24 | disposition home or self-care (01) | DRG 766 ==
LOC: HOBED 19:50 → H2EB 20:32 → H1EA 02-11 02:19
PROVIDERS: ADMIT Obstetrics & Gynecology Maternal & Fetal Medicine; ATTEND Obstetrics & Gynecology Maternal & Fetal Medicine
PROC: 10D00Z1 Extraction of Products of Conception, Low, Open Approach (ICD-10-PCS; principal; 2018-02-10)
PROC: 0UB70ZZ Excision of Bilateral Fallopian Tubes, Open Approach (ICD-10-PCS; 2018-02-10)
DX: O34.211 Maternal care for low transverse scar from previous cesarean delivery (principal); D64.9 Anemia, unspecified; F41.9 Anxiety disorder, unspecified; O99.344 Other mental disorders complicating childbirth; Z37.0 Single live birth; Z3A.39 39 weeks gestation of pregnancy; Z23 Encounter for immunization; Z30.2 Encounter for sterilization
CPT/HCPCS: 59025; 80307; 81001; 84112; 85025; 86850; 86900; 86901; 87086; 87641; 88302; 90715; J0131; J0690; J2274; J7120